=== PATIENT | female | born 1980 | race Caucasian/White ===

== ENCOUNTER → 2019-02-24 | Outpatient (CLI) | payer OTHER ==
[2004-08-26 06:04] VITALS: BP 142/74; PULSE 87; TEMP 98.3
[~2019-02-24] MED LIST: LORTAB 5/500 501 TAB PO; NO HOME MEDICATIONS
== END ==
LOC: MC.RAD 15:24
DX: Z12.31 Encounter for screening mammogram for malignant neoplasm of breast (principal)

== ENCOUNTER → 2020-02-27 | Outpatient (CLI) | payer OTHER ==
[2004-08-26 06:04] VITALS: PULSE 87; TEMP 98.3
== END ==
LOC: MC.RAD 10:00
DX: Z12.31 Encounter for screening mammogram for malignant neoplasm of breast (principal); N64.89 Other specified disorders of breast

== ENCOUNTER → 2020-03-02 | Outpatient (CLI) | payer OTHER ==
[2004-08-26 06:04] VITALS: PULSE 87; TEMP 98.3
== END ==
LOC: MC.RAD 10:50
DX: N64.89 Other specified disorders of breast (principal)

== ENCOUNTER → 2020-08-31 | Outpatient (CLI) | payer OTHER ==
[2004-08-26 06:04] VITALS: PULSE 87; TEMP 98.3
== END ==
LOC: MC.RAD 06:54
DX: R92.8 Other abnormal and inconclusive findings on diagnostic imaging of breast (principal)

== ENCOUNTER → 2021-02-27 | Outpatient (CLI) | payer OTHER ==
[2004-08-26 06:04] VITALS: PULSE 87; TEMP 98.3
== END ==
LOC: MC.RAD 07:45
DX: Z12.31 Encounter for screening mammogram for malignant neoplasm of breast (principal)

== ENCOUNTER → 2022-06-10 | Outpatient (CLI) | payer OTHER ==
[2004-08-26 06:04] VITALS: PULSE 87; TEMP 98.3
[~2022-06-10] MED LIST changes: +FLEXERIL 1010 MG/TAB PO
== END ==
LOC: MC.RAD 03-27 07:15
DX: Z12.31 Encounter for screening mammogram for malignant neoplasm of breast (principal)

== ENCOUNTER → 2023-06-12 | Outpatient (CLI) | payer OTHER ==
[2004-08-26 06:04] VITALS: BP 142/74; PULSE 87; TEMP 98.3
== END ==
LOC: MC.RAD 06:57
DX: Z12.31 Encounter for screening mammogram for malignant neoplasm of breast (principal)